=== PATIENT | male | born 1975 | race Hispanic/Latino ===

== ENCOUNTER → 2020-08-30 | Day surgery (SDC) | payer OTHER, SELFPAY ==
[~2020-08-30] MED LIST: ATORVASTATIN CA20 MG PO; BUPIVACAINE HCL 0.5% INJ 30 ML VIAL INJ ONE; CEFAZOLIN SOD 1 GM/NS 50ML 50 ML IV ONE; DEXAMETHASONE SOD PHOS INJ 4 MG/ML VIAL ONE; FENTANYL CITRATE/PF 100MCG/2 ML INJ ONE; KETOROLAC TROMETHAMINE 30 MG/ML VIAL ONE; LIDOCAINE HCL 2% LOCAL INJ 5 ML SDV VIAL INJ ONE; MIDAZOLAM HCL 2 MG/2 ML VIAL ONE; NEOSTIGMINE 1 MG/ML 10ML VIAL ONE; ONDANSETRON HCL INJ 2MG/ML 2ML 2 MG/ML VIAL ONE; PROPOFOL IV EMULSION 10 MG/ML 20 ML VIAL ONE; SEVOFLURANE INHAL SOLN 250 ML PEN BTL ONE; TYLENOL325 MG PO
[2020-08-30 14:05] VITALS: BP 128/91
== END | disposition home or self-care (01) ==
LOC: OR 10:22
PROVIDERS: ATTEND Specialist
DX: S82.51XA Displaced fracture of medial malleolus of right tibia, initial encounter for closed fracture (principal); E78.00 Pure hypercholesterolemia, unspecified; W17.2XXA Fall into hole, initial encounter; Y93.89 Activity, other specified; Y99.8 Other external cause status; Z01.810 Encounter for preprocedural cardiovascular examination; Z01.812 Encounter for preprocedural laboratory examination; Z20.822 Contact with and (suspected) exposure to COVID-19
CPT/HCPCS: 27766; 76000; 93005; J0690; J1100; J1885; J2001; J2250; J2405; J2704; J3010; U0002; J2710

== ENCOUNTER → 2021-01-10 | Day surgery (SDC) | payer OTHER ==
[~2021-01-10] MED LIST changes: -BUPIVACAINE HCL 0.5% INJ 30 ML VIAL INJ ONE; -CEFAZOLIN SOD 1 GM/NS 50ML 50 ML IV ONE; -FENTANYL CITRATE/PF 100MCG/2 ML INJ ONE; +GLYCOPYRROLATE INJ 0.2 MG/ML VIAL ONE; -MIDAZOLAM HCL 2 MG/2 ML VIAL ONE; +POVIDONE IODINE 0.05% 0.05 % ML PO ONE; +ROCURONIUM BROMIDE 10 MG/ML 5ML VIAL IV ONE
[2021-01-10 12:05] VITALS: BP 97/65
== END | disposition home or self-care (01) ==
LOC: OR 08:12
PROVIDERS: ATTEND Specialist
DX: M75.121 Complete rotator cuff tear or rupture of right shoulder, not specified as traumatic (principal); S43.431A Superior glenoid labrum lesion of right shoulder, initial encounter; K29.70 Gastritis, unspecified, without bleeding; F41.9 Anxiety disorder, unspecified; E78.00 Pure hypercholesterolemia, unspecified; Z01.812 Encounter for preprocedural laboratory examination; Z20.822 Contact with and (suspected) exposure to COVID-19
CPT/HCPCS: 29807; 29826; 29827; C1713 ×2; U0002; J1100; J1885; J2001; J2405; J2710

== ENCOUNTER → 2021-03-24 | Outpatient (CLI) | payer OTHER ==
[~2021-03-24] MED LIST changes: -DEXAMETHASONE SOD PHOS INJ 4 MG/ML VIAL ONE; +EPINEPHRINE 1 MG/ML 30ML VIAL ONE; -GLYCOPYRROLATE INJ 0.2 MG/ML VIAL ONE; -KETOROLAC TROMETHAMINE 30 MG/ML VIAL ONE; -LIDOCAINE HCL 2% LOCAL INJ 5 ML SDV VIAL INJ ONE; -NEOSTIGMINE 1 MG/ML 10ML VIAL ONE; -ONDANSETRON HCL INJ 2MG/ML 2ML 2 MG/ML VIAL ONE; -POVIDONE IODINE 0.05% 0.05 % ML PO ONE; -PROPOFOL IV EMULSION 10 MG/ML 20 ML VIAL ONE; -ROCURONIUM BROMIDE 10 MG/ML 5ML VIAL IV ONE; -SEVOFLURANE INHAL SOLN 250 ML PEN BTL ONE; +SODIUM CHLORIDE 0.9% 50ML 50 ML ONE
== END ==
LOC: MERGE 01-10 10:30 → EDSTATUS 03-13 10:30 → OR 07:57 → RAD 07:57
PROVIDERS: ATTEND Specialist
DX: M75.101 Unspecified rotator cuff tear or rupture of right shoulder, not specified as traumatic (principal)
CPT/HCPCS: 93005; J0690

== ENCOUNTER 2023-12-24 15:57 | Outpatient (RCR) | payer OTHER ==
[~2023-12-24 15:57] MED LIST changes: -EPINEPHRINE 1 MG/ML 30ML VIAL ONE; -SODIUM CHLORIDE 0.9% 50ML 50 ML ONE
== END 2023-12-25 ==
LOC: PT 15:57
PROVIDERS: ATTEND Physician Assistant
DX: M75.102 Unspecified rotator cuff tear or rupture of left shoulder, not specified as traumatic (principal)

== ENCOUNTER 2023-12-30 15:20 | Outpatient (RCR) | payer OTHER | END 2024-01-25 | LOC: PT 15:20 | PROVIDERS: ATTEND Physician Assistant | DX: M25.512 Pain in left shoulder (principal) ==